=== PATIENT | female | born 1980 | race Asian ===

== ENCOUNTER 2018-06-06 12:31 | Emergency (ER) | payer OTHER ==
[~2018-06-06] VITALS: Ht 162.6 cm; Wt 62.6 kg
[~2018-06-06 12:31] MED LIST: ALPR1TAB61 PO; CLOP75TA2 PO; ENTERIC COATED325 MG PO; HYDR-2748 PO; LISI10TA11 PO; LISI5TAB10 PO; SIMV40TA57; SIMV40TA57 PO; SOMA350 MG PO
[2018-06-06] MEDS ORDERED: LISI20TA11 PO (13:01)
[2018-06-06 15:00] VITALS: BP 136/76; TEMP 98.5
== END 2018-06-06 15:00 | disposition home or self-care (01) ==
LOC: ED 12:31
DX: K04.7 Periapical abscess without sinus (principal)
CPT/HCPCS: 99282

== ENCOUNTER 2020-08-16 23:30 | Emergency (ER) | payer OTHER ==
[~2020-08-16] VITALS: Ht 162.6 cm; Wt 77.1 kg
[~2020-08-16 23:30] MED LIST changes: +LISI20TA11 PO
[2020-08-17 00:47] VITALS: BP 170/74; TEMP 98.3
== END 2020-08-17 00:47 | disposition home or self-care (01) ==
LOC: ED 23:30
DX: G24.9 Dystonia, unspecified (principal)
CPT/HCPCS: 99283; J1885